=== PATIENT | female | born 1965 | race Caucasian/White ===

== ENCOUNTER 2017-10-05 13:10 | Emergency (ER) | payer BC ==
[2017-10-05] MEDS ORDERED: HYDROmorphone 1 MG/ML Syringe ONE (13:21)
[2017-10-05 13:45] VITALS: BP 135/88
[2017-10-05] MEDS ORDERED: HYDROmorphone 1 MG/ML Syringe IVPUSH ONE ×2 (13:45→14:10)
--- NOTE | 2017-10-05 13:54 | EDM.PDOC ---
ED HPI GENERAL MEDICAL PROBLEM - General Chief Complaint: Upper Extremity Injury/Pain Stated Complaint: Left wrist injury Time Seen by Provider: 10/05/17 13:45 Source of Information: Reports: Patient History Limitations: Reports: No Limitations - History of Present Illness INITIAL COMMENTS - FREE TEXT/NARRATIVE: Patient is a 52-year-old female who presents to the emergency department this afternoon with a complaint of left wrist pain. Patient states that she jumped off vehicle and landed on her feet but tumbled backwards and tried to break her fall with her left arm. Patient complains of left wrist and elbow pain now. Patient denies head injury, back pain, any other injuries, loss of consciousness , or any alcohol or drug use. Onset: Today Onset Date: 10/05/17 Duration: Minutes: Location: Reports: Upper Extremity, Left Quality: Reports: Sharp Severity: Moderate Improves with: Reports: None Worsens with: Reports: Movement Context: Reports: Trauma Associated Symptoms: Reports: No Other Symptoms Left Wrist Pain Score (Numeric/FACES): 10 - Related Data Allergies Allergy/AdvReac Type Severity Reaction Status Date / Time Penicillins Allergy Cannot Verified 10/05/17 13:38 Remember Home Meds: Home Meds Mesalamine [Lialda] 2.4 mg PO DAILY 10/05/17 [History] Past Medical History Gastrointestinal History: Reports: Cholelithiasis, Chronic Diarrhea, Inflammatory Bowel Disease Genitourinary History: Reports: Renal Calculus [employer]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: Fibroids, Musculoskeletal History: Reports: Other (See Below) Other Musculoskeletal History: L 5 slipping forwar - Infectious Disease History Infectious Disease History: Reports: Chicken Pox - Past Surgical History GI Surgical History: Reports: Cholecystectomy, Other (See Below) Social & Family History - Family History HEENT: Reports: Cataract Cardiac: Reports: Hypertension GI: Reports: Inflammatory Bowel Disease Neurological: Reports: CVA - Tobacco Use Smoking Status *Q: Former Smoker Years of Tobacco use: 1 Used Tobacco, but Quit: Yes Month Tobacco Last Used: january Second Hand Smoke Exposure: No - Caffeine Use Caffeine Use: Reports: None - Alcohol Use Days Per Week of Alcohol Use: 0 - Recreational Drug Use Recreational Drug Use: No Review of Systems - Review of Systems Review Of Systems: ROS reveals no pertinent complaints other than HPI. Constitutional: Reports: No Symptoms Eyes: Reports: No Symptoms Ears: Reports: No Symptoms Nose: Reports: No Symptoms Mouth/Throat: Reports: No Symptoms Respiratory: Reports: No Symptoms Cardiovascular: Reports: No Symptoms GI/Abdominal: Reports: No Symptoms Genitourinary: Reports: No Symptoms Musculoskeletal: Reports: Arm Pain (Left wrist and elbow) Skin: Reports: No Symptoms Neurological: Reports: No Symptoms Psychiatric: Reports: No Symptoms ED EXAM, GENERAL - Physical Exam Exam: See Below Exam Limited By: No Limitations General Appearance: Alert, WD/WN, Moderate Distress Throat/Mouth: Normal Inspection, Normal Oropharynx, No Airway Compromise Head: Atraumatic, Normocephalic Neck: Normal Inspection, Supple, Non-Tender, Full Range of Motion Respiratory/Chest: No Respiratory Distress, Lungs Clear Cardiovascular: Regular Rate, Rhythm GI/Abdominal: Normal Bowel Sounds, Soft, Non-Tender Back Exam: Normal Inspection, Full Range of Motion Extremities: Other (left wrist dorsal aspect edema and deformity) Neurological: Alert, Oriented, Normal Cognition Psychiatric: Normal Affect, Normal Mood Skin Exam: Warm, Dry, Intact, Normal Color, No Rash Course - Vital Signs Last Recorded V/S: Last Vital Signs Temp 98.7 F 10/05/17 13:36 Pulse 107 H 10/05/17 13:36 Resp 20 10/05/17 13:36 BP 135/88 10/05/17 13:36 Pulse Ox 100 10/05/17 13:36 - Orders/Labs/Meds Orders: Active Orders 24 hr Category Date Time Status Elbow Min 3V Lt [CR] Stat Exams 10/05/17 13:26 Taken Wrist Comp Min 3V Lt [CR] Stat Exams 10/05/17 13:26 Ordered Meds: Medications Discontinued Medications Generic Name Dose Route Start Last Admin Trade Name Gogo PRN Reason Stop Dose Admin Hydromorphone HCl Confirm 10/05/17 13:21 10/05/17 14:02 Dilaudid Administered 10/05/17 13:22 Not Given Dose 1 mg .ROUTE .STK-MED ONE Hydromorphone HCl 1 mg 10/05/17 13:45 10/05/17 13:25 Dilaudid IVPUSH 10/05/17 13:46 1 mg ONETIME ONE Administration Hydromorphone HCl 0.5 mg 10/05/17 14:10 10/05/17 14:19 Dilaudid IVPUSH 10/05/17 14:11 0.5 mg ONETIME ONE Administration Ketorolac Tromethamine 30 mg 10/05/17 13:57 10/05/17 14:00 Toradol IVPUSH 10/05/17 13:58 30 mg ONETIME ONE Administration Ketorolac Tromethamine Confirm 10/05/17 13:59 10/05/17 14:04 Toradol Administered 10/05/17 14:00 Not Given Dose 30 mg .ROUTE .STK-MED ONE Ondansetron HCl 4 mg 10/05/17 14:11 10/05/17 14:16 Zofran IVPUSH 10/05/17 14:12 4 mg ONETIME ONE Administration - Radiology Interpretation Free Text/Narrative:: Left wrist with acute comminuted and impacted intra-articular distal radial fracture with significant step off and distraction at the articular surface - Re-Assessments/Exams Free Text/Narrative Re-Assessment/Exam: 10/05/17 15:44 Patient afebrile, nontoxic, vital signs stable, pain tolerated. Discussed case with Dr. Wiley, orthopedic surgeon and Dr. Carlisle, hospitalist from [facility] in [place]. Will accept transfer of care Departure - Departure Time of Disposition: 16:02 Disposition: DC/Tfer to Acute Hospital 02 Condition: Fair Clinical Impression: Fracture of radius Qualifiers: Encounter type: initial encounter Radius location: distal Fracture type: closed Fracture morphology: other intra-articular Laterality: left Qualified Code(s): S52.572A - Other intraarticular fracture of lower end of left radius, initial encounter for closed fracture - Discharge Information Referrals: Laura Lopez MD [Primary Care Provider] - Forms: ED Department Discharge - My Orders Last 24 Hours: My Active Orders 10/05/17 13:26 Elbow Min 3V Lt [CR] Stat Wrist Comp Min 3V Lt [CR] Stat - Assessment/Plan Last 24 Hours: My Active Orders 10/05/17 13:26 Elbow Min 3V Lt [CR] Stat Wrist Comp Min 3V Lt [CR] Stat Assessment:: Left wrist fracture Plan: Transferred to [place]
[2017-10-05] MEDS ORDERED: Ketorolac 30 MG/ML SDV IVPUSH ONE (13:57)
[2017-10-05] MEDS ORDERED: Ketorolac 30 MG/ML SDV ONE (13:59)
[2017-10-05] MEDS ORDERED: Ondansetron 4 MG/2 ML SDV IVPUSH ONE (14:11)
== END 2017-10-05 16:20 ==
LOC: KA.ED 13:16
PROC: 2W3DX1Z Immobilization of Left Lower Arm using Splint (ICD-10-PCS; principal; 2017-10-05)
DX: S52.572A Other intraarticular fracture of lower end of left radius, initial encounter for closed fracture (principal); Z88.0 Allergy status to penicillin; Z87.891 Personal history of nicotine dependence; V87.8XXA Person injured in other specified noncollision transport accidents involving motor vehicle (traffic), initial encounter; Y93.39 Activity, other involving climbing, rappelling and jumping off
CPT/HCPCS: 29125; 73080-LT; 73110-LT; 96374; 96375; 96376; 99284; J1170; J1885; J2405

== ENCOUNTER 2017-10-15 11:19 | Observation (INO) | payer BC ==
[2017-10-15] MEDS ORDERED: Sodium Chloride 0.9% 1,000 ML IV ONE (11:31)
[2017-10-15] MEDS ORDERED: Sodium Chloride 0.9% 5 ML Syringe FLUSH PRN ×2 (11:31→13:15)
--- NOTE | 2017-10-15 11:37 | EDM.PDOC ---
ED HPI GENERAL MEDICAL PROBLEM - General Chief Complaint: Abdominal Pain Stated Complaint: Abdominal pain Time Seen by Provider: 10/15/17 11:25 Source of Information: Reports: Patient History Limitations: Reports: No Limitations - History of Present Illness INITIAL COMMENTS - FREE TEXT/NARRATIVE: 52 YO WF presents to ER complaining of crampy abdominal pain x 1 day with nausea /vomiting. Pt reports the last time this happened to her she had a bowel obstruction. Pt reports she has a J pouch and has most recently passed liquid stool and gas this am. Pt reports 1 episode of vomiting this am prompting her ER visit. Pt denies any IBS flares since 1993 when she had her J pouch placed for Ulcerative colitis. Pt denies any fever/chills. Pt states her pain is currently controlled. Pt was given zofran 4mg IV by EMS and is currently comfortable. Onset: Today Location: Reports: Abdomen Quality: Reports: Ache Severity: Mild Improves with: Reports: None Worsens with: Reports: None Associated Symptoms: Reports: No Other Symptoms, Nausea/Vomiting. Denies: Chest Pain, Cough, cough w sputum, Fever/Chills, Shortness of Breath Treatments STUDENT ADVISOR: Reports: IV/IO Abdominal Pain Score (Numeric/FACES): 2 - Related Data Allergies Allergy/AdvReac Type Severity Reaction Status Date / Time Penicillins Allergy Cannot Verified 10/15/17 11:31 Remember Home Meds: Home Meds Mesalamine [Lialda] 2.4 mg PO DAILY 10/05/17 [History] Hydrocodone/Acetaminophen [Hydrocodon-Acetaminophen 5-325] 1 tab PO Q6H PRN 08/20 [History] Past Medical History Gastrointestinal History: Reports: Cholelithiasis, Chronic Diarrhea, Inflammatory Bowel Disease Genitourinary History: Reports: Renal Calculus [employer]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: 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, Musculoskeletal History: Reports: Other (See Below) Other Musculoskeletal History: L 5 slipping forwar - Infectious Disease History Infectious Disease History: Reports: Chicken Pox - Past Surgical History GI Surgical History: Reports: Cholecystectomy, Other (See Below) Social & Family History - Family History HEENT: Reports: Cataract Cardiac: Reports: Hypertension GI: Reports: Inflammatory Bowel Disease Neurological: Reports: CVA - Tobacco Use Smoking Status *Q: Former Smoker Years of Tobacco use: 1 Used Tobacco, but Quit: Yes Month Tobacco Last Used: january Second Hand Smoke Exposure: No - Caffeine Use Caffeine Use: Reports: None - Alcohol Use Days Per Week of Alcohol Use: 0 - Recreational Drug Use Recreational Drug Use: No ED ROS GENERAL - Review of Systems Review Of Systems: See Below Constitutional: Reports: No Symptoms HEENT: Reports: No Symptoms Respiratory: Reports: No Symptoms Cardiovascular: Reports: No Symptoms Endocrine: Reports: No Symptoms GI/Abdominal: Reports: Abdominal Pain, Diarrhea, Nausea, Vomiting. Denies: Black Stool, Bloody Stool, Hematemesis, Hematochezia, Melena : Reports: No Symptoms Musculoskeletal: Reports: No Symptoms Skin: Reports: No Symptoms Neurological: Reports: No Symptoms Psychiatric: Reports: No Symptoms Hematologic/Lymphatic: Reports: No Symptoms Immunologic: Reports: No Symptoms ED EXAM, GI/ABD - Physical Exam Exam: See Below Exam Limited By: No Limitations General Appearance: Alert, WD/WN, No Apparent Distress Head: Atraumatic, Normocephalic Neck: Normal Inspection, Supple, Non-Tender, Full Range of Motion Respiratory/Chest: No Respiratory Distress, Lungs Clear, Normal Breath Sounds, No Accessory Muscle Use, Chest Non-Tender Cardiovascular: Normal Peripheral Pulses, Regular Rate, Rhythm, No Edema, No Gallop, No JVD, No Murmur, No Rub GI/Abdominal Exam: Normal Bowel Sounds, Soft, No Organomegaly, No Distention, No Abnormal Bruit, No Mass, Pelvis Stable, Tender (mild generalized abdominal pain) Back Exam: Normal Inspection, Full Range of Motion, NT Extremities: Normal Inspection, Normal Range of Motion, Non-Tender, Normal Capillary Refill, No Pedal Edema Neurological: Alert, Oriented, CN II-XII Intact, Normal Cognition, Normal Gait, Normal Reflexes, No Motor/Sensory Deficits Psychiatric: Normal Affect, Normal Mood Skin Exam: Warm, Dry, Intact, Normal Color, No Rash Lymphatic: No Adenopathy Course - Vital Signs Last Recorded V/S: Last Vital Signs Temp 36.6 C 10/15/17 11:26 Pulse 81 10/15/17 11:26 Resp 20 10/15/17 11:26 BP 127/70 10/15/17 11:26 Pulse Ox 99 10/15/17 11:26 - Orders/Labs/Meds Orders: Active Orders 24 hr Category Date Time Status Patient Status Manage Transfer [TRANSFER] Routine ADT 10/15/17 13:13 Ordered Patient Status [ADT] Routine ADT 10/15/17 13:15 Ordered Bedrest Bathroom Privileges [RC] ASDIRECTED Care 10/15/17 13:15 Active Oxygen Therapy [RC] PRN Care 10/15/17 13:15 Active Peripheral IV Care [RC] . DIRECTED Care 10/15/17 11:31 Active Peripheral IV Care [RC] . DIRECTED Care 10/15/17 13:17 Active VTE/DVT Education [RC] PER UNIT ROUTINE Care 10/15/17 13:15 Active Vital Signs [RC] Q4H Care 10/15/17 13:15 Active Nothing per Oral Now Diet [DIET] Diet 10/15/17 Dinner Active Abdomen 2V AP Upright Decub [CR] Stat Exams 10/15/17 11:31 Taken BASIC METABOLIC PANEL,BMP [CHEM] AM Lab 10/16/17 05:11 Ordered CBC WITH AUTO DIFF [HEME] AM Lab 10/16/17 05:11 Ordered Morphine Med 10/15/17 13:15 Ordered 2 mg IVPUSH Q2H PRN Ondansetron [Zofran] Med 10/15/17 13:15 Ordered 4 mg IV Q6H PRN Sodium Chloride 0.9% @ 125 MLS/HR (1000ml) Med 10/15/17 13:15 Ordered Sodium Chloride 0.9% [Normal Saline] 1,000 ml IV ASDIRECTED Sodium Chloride 0.9% [Syrex Flush] Med 10/15/17 11:31 Active 5 ml FLUSH Q8HR PRN Sodium Chloride 0.9% [Syrex Flush] Med 10/15/17 13:15 Ordered 5 ml FLUSH Q8HR PRN Peripheral IV Insertion Adult [OM.PC] Routine Oth 10/15/17 11:31 Ordered Peripheral IV Insertion Adult [OM.PC] Routine Oth 10/15/17 13:15 Ordered Resuscitation Status Routine Resus Stat 10/15/17 13:15 Ordered Medication Orders Sodium Chloride (Normal Saline) 1,000 mls @ 125 mls/hr IV ASDIRECTED FERDINAND Morphine Sulfate (Morphine) 2 mg IVPUSH Q2H PRN PRN Reason: Pain (severe 7-10) Ondansetron HCl (Zofran) 4 mg IV Q6H PRN PRN Reason: Nausea/Vomiting Sodium Chloride (Syrex Flush) 5 ml FLUSH Q8HR PRN PRN Reason: Keep Vein Open Sodium Chloride (Syrex Flush) 5 ml FLUSH Q8HR PRN PRN Reason: Keep Vein Open Labs: Laboratory Tests 10/15/17 10/15/17 10/15/17 Range/Units 11:00 11:00 12:02 WBC 15.2 H (5.0-10.0) 10^3/uL RBC 5.15 (3.80-5.50) 10^6/uL Hgb 14.7 (12.0-16.0) g/dL Hct 45.0 (37.0-47.0) % MCV 87.3 (82.0-92.0) fL MCH 28.6 (27.0-31.0) pg MCHC 32.7 (32.0-36.0) g/dL RDW 11.9 (11.5-14.5) % Plt Count 490 H (150-300) 10^3/uL MPV 8.3 (7.4-10.4) fL Neut % (Auto) 70.3 H (50.0-70.0) % Lymph % (Auto) 22.7 (20.0-40.0) % [place] % (Auto) 6.1 (2.0-8.0) % Eos % (Auto) 0.7 L (1.0-3.0) % Baso % (Auto) 0.2 (0.0-1.0) % Neut # (Auto) 10.7 H (2.5-7.0) 10^3/uL Lymph # (Auto) 3.5 (1.0-4.0) 10^3/uL [place] # (Auto) 0.9 H (0.1-0.8) 10^3/uL Eos # (Auto) 0.1 (0.1-0.3) 10^3/uL Baso # (Auto) 0.0 (0.0-0.1) 10^3/uL Sodium 138 (136-145) mmol/L Potassium 2.9 L (3.3-5.3) mmol/L Chloride 98 (98-115) mmol/L Carbon Dioxide 22.4 (21.0-32.0) mmol/L BUN 15 (6-25) mg/dL Creatinine 0.73 (0.51-1.17) mg/dL Est Cr Clr Drug Dosing 72.92 mL/min Estimated GFR (MDRD) > 60 mL/min Glucose 139 H (70-110) mg/dL Calcium 9.9 (8.7-10.3) mg/dL Total Bilirubin 0.6 (0.2-1.0) mg/dL AST 25 (15-37) U/L ALT 32 (12-78) U/L Alkaline Phosphatase 114 (46-116) IU/L Total Protein 8.4 H (6.4-8.2) g/dL Albumin 4.03 (3.00-4.80) g/dL Lipase 242 (73-393) U/L Specimen Type Urinvoid Urine Color Yellow (YELLOW) Urine Appearance Slightly cloudy H (CLEAR) Urine pH 7.0 (5.0-9.0) Ur Specific [place] 1.010 (1.005-1.030) Urine Protein Negative (NEGATIVE) mg/dL Urine Glucose (UA) Negative (NEGATIVE) mg/dL Urine Ketones 15 H (NEGATIVE) mg/dL Urine Occult Blood Trace-lysed H (NEGATIVE) Urine Nitrite Negative (NEGATIVE) Urine Bilirubin Negative (NEGATIVE) Urine Urobilinogen 0.2 (0.2-1.0) E.U./dL Ur Leukocyte Esterase Negative (NEGATIVE) Urine RBC 0-5 /HPF Urine WBC 0-5 /HPF Ur Epithelial Cells Many H /LPF Urine Bacteria Few (NONE TO FEW) /HPF Meds: Medications Generic Name Dose Route Start Last Admin Trade Name Freq PRN Reason Stop Dose Admin Sodium Chloride 1,000 mls @ 125 mls/hr 10/15/17 13:15 Normal Saline IV ASDIRECTED FERDINAND Morphine Sulfate 2 mg 10/15/17 13:15 Morphine IVPUSH Q2H PRN Pain (severe 7-10) Ondansetron HCl 4 mg 10/15/17 13:15 Zofran IV Q6H PRN Nausea/Vomiting Sodium Chloride 5 ml 10/15/17 11:31 Syrex Flush FLUSH Q8HR PRN Keep Vein Open Sodium Chloride 5 ml 10/15/17 13:15 Syrex Flush FLUSH Q8HR PRN Keep Vein Open Discontinued Medications Generic Name Dose Route Start Last Admin Trade Name Freq PRN Reason Stop Dose Admin Sodium Chloride 1,000 mls @ 999 mls/hr 10/15/17 11:31 10/15/17 11:43 Normal Saline IV 10/15/17 12:31 999 mls/hr .BOLUS ONE Administration Potassium Chloride 40 meq 10/15/17 12:07 10/15/17 12:14 Klor-Con M20 PO 10/15/17 12:08 40 meq ONETIME ONE Administration - Radiology Interpretation Free Text/Narrative:: AAS- Partial SBO vs Ileus Departure - Departure Time of Disposition: 13:20 Disposition: Refer to Observation Condition: Fair Clinical Impression: Small bowel obstruction, Hypokalemia - Discharge Information Referrals: PCP,Unobtain [Ordering Only Provider] - Forms: ED Department Discharge - My Orders Last 24 Hours: My Active Orders 10/15/17 11:31 Peripheral IV Care [RC] . DIRECTED Abdomen 2V AP Upright Decub [CR] Stat Sodium Chloride 0.9% [Syrex Flush] 5 ml FLUSH Q8HR PRN Peripheral IV Insertion Adult [OM.PC] Routine 10/15/17 13:13 Patient Status Manage Transfer [TRANSFER] Routine 10/15/17 13:15 Patient Status [ADT] Routine Bedrest Bathroom Privileges [RC] ASDIRECTED Oxygen Therapy [RC] PRN VTE/DVT Education [RC] PER UNIT ROUTINE Vital Signs [RC] Q4H Morphine 2 mg IVPUSH Q2H PRN Ondansetron [Zofran] 4 mg IV Q6H PRN Sodium Chloride 0.9% @ 125 MLS/HR (1000ml) Sodium Chloride 0.9% [Normal Saline] 1,000 ml IV ASDIRECTED Sodium Chloride 0.9% [Syrex Flush] 5 ml FLUSH Q8HR PRN Peripheral IV Insertion Adult [OM.PC] Routine Resuscitation Status Routine 10/15/17 13:17 Peripheral IV Care [RC] . DIRECTED 10/15/17 Dinner Nothing per Oral Now Diet [DIET] 10/16/17 05:11 BASIC METABOLIC PANEL,BMP [CHEM] AM CBC WITH AUTO DIFF [HEME] AM - Assessment/Plan Last 24 Hours: My Active Orders 10/15/17 11:31 Peripheral IV Care [RC] . DIRECTED Abdomen 2V AP Upright Decub [CR] Stat Sodium Chloride 0.9% [Syrex Flush] 5 ml FLUSH Q8HR PRN Peripheral IV Insertion Adult [OM.PC] Routine 10/15/17 13:13 Patient Status Manage Transfer [TRANSFER] Routine 10/15/17 13:15 Patient Status [ADT] Routine Bedrest Bathroom Privileges [RC] ASDIRECTED Oxygen Therapy [RC] PRN VTE/DVT Education [RC] PER UNIT ROUTINE Vital Signs [RC] Q4H Morphine 2 mg IVPUSH Q2H PRN Ondansetron [Zofran] 4 mg IV Q6H PRN Sodium Chloride 0.9% @ 125 MLS/HR (1000ml) Sodium Chloride 0.9% [Normal Saline] 1,000 ml IV ASDIRECTED Sodium Chloride 0.9% [Syrex Flush] 5 ml FLUSH Q8HR PRN Peripheral IV Insertion Adult [OM.PC] Routine Resuscitation Status Routine 10/15/17 13:17 Peripheral IV Care [RC] . DIRECTED 10/15/17 Dinner Nothing per Oral Now Diet [DIET] 10/16/17 05:11 BASIC METABOLIC PANEL,BMP [CHEM] AM CBC WITH AUTO DIFF [HEME] AM Assessment:: 1. Partial SBO vs Ileus 2. hypokalemia Plan: 1. admit to Obs- Dr Solis 2. IVF NS @125CC/HR 3. npo 4. zofran 4mg IV Q6 5. MSO4 2-4mg IV Q2-4 PRN pain 6. repeat labs in am
[2017-10-15 11:48] LABS: CHLORIDE,CL 98 mmol/L (98-115); SODIUM,NA 138 mmol/L (136-145)
[2017-10-15] MEDS ORDERED: Potassium Chloride 20 MEQ Tab.ER PO ONE (12:07)
[2017-10-15] MEDS ORDERED: Ondansetron 4 MG/2 ML SDV IV PRN (13:15)
[2017-10-15] MEDS ORDERED: Morphine 2 MG/ML Syringe IVPUSH PRN (13:15)
[2017-10-15] MEDS: Sodium Chloride 0.9% 1,000 ML IV SCH ×2 (13:38→22:02)
[2017-10-15] MEDS ORDERED: Ondansetron 4 MG/2 ML SDV IVPUSH ONE (14:42)
[2017-10-15] MEDS ORDERED: Ketorolac 30 MG/ML SDV IVPUSH ONE (15:01)
[2017-10-15] MEDS ORDERED: Promethazine 25 MG/ML SDV IM PRN (16:26)
[2017-10-16] MEDS: Sodium Chloride 0.9% 1,000 ML IV SCH ×2 (06:01→14:05)
[2017-10-16 07:40] LABS: CHLORIDE,CL 110 mmol/L (98-115); SODIUM,NA 144 mmol/L (136-145)
--- NOTE | 2017-10-16 08:48 | PCM.PN ---
- General Info Date of Service: 10/16/17 Admission Dx/Problem (Free Text): Partial SBO vs. Ileus - Review of Systems Systems Review Comment:: Vangie is seen on observation rounds today. She was admitted on 10/15/17 from the ER. She had severe abdominal pain with nausea. She has a hx of partial small bowel obstruction and states that she can usually manage it at home on her own with bowel rest but this time she states the pain was so intense. She has a recent left wrist fracture with surgical repair. She has not been taking pain meds. She states that she had oxygen on as she came out of anesthesia and when she went home and took a pain pill she woke up gasping for air and that startled her so she has not taken any additional pain medication. No change in diet. She has a complicated GI history in that she has a hx of ulcerative colitis with a colectomy and an J-pouch. She, unfortunately, developed Crohn's disease in her small bowel subsequent to that. She really manages pretty well at home. She declined any pain medications yesterday but the pain became so intense in the afternoon after she was admitted that she did receive toradol 30 mg IV. She was having nausea and had zofran but that did not help. She had a large emesis around 1600 10/15/17 and felt better after that. She declined NG tube placement. When I see her this morning she states that she is "hungry". She has had no more nausea or vomiting through the night and while her abdomen is "sore" she has had no more of the sharp pain. She would like to try some Jello. She states she was passing liquid stool all through the night and has had gas with that stool as well. She has not urinated as much as she expects she would have be on IVF's but her UA was clear of infection. Nursing has no concerns this morning. - Patient Data Vitals - Most Recent: Last Vital Signs Temp 99.0 F 10/16/17 06:39 Pulse 81 10/16/17 06:39 Resp 16 10/16/17 06:39 BP 96/59 L 10/16/17 06:39 Pulse Ox 97 10/16/17 06:39 Weight - Most Recent: 129 lb 14.4 oz I&O - Last 24 Hours: Intake & Output 10/15/17 10/16/17 10/16/17 22:59 06:59 14:59 Intake Total 991 1000 Output Total 150 200 Balance 841 800 Lab Results Last 24 Hours: Laboratory Results - last 24 hr 10/16/17 10/16/17 Range/Units 07:00 07:00 WBC 10.7 H (5.0-10.0) 10^3/uL RBC 4.11 (3.80-5.50) 10^6/uL Hgb 11.9 L D (12.0-16.0) g/dL Hct 35.8 L (37.0-47.0) % MCV 87.1 (82.0-92.0) fL MCH 28.9 (27.0-31.0) pg MCHC 33.2 (32.0-36.0) g/dL RDW 12.0 (11.5-14.5) % Plt Count 389 H D (150-300) 10^3/uL MPV 7.7 (7.4-10.4) fL Neut % (Auto) 65.1 (50.0-70.0) % Lymph % (Auto) 22.0 (20.0-40.0) % [place] % (Auto) 9.2 H (2.0-8.0) % Eos % (Auto) 2.6 (1.0-3.0) % Baso % (Auto) 1.1 H (0.0-1.0) % Neut # (Auto) 6.9 (2.5-7.0) 10^3/uL Lymph # (Auto) 2.4 (1.0-4.0) 10^3/uL [place] # (Auto) 1.0 H (0.1-0.8) 10^3/uL Eos # (Auto) 0.3 (0.1-0.3) 10^3/uL Baso # (Auto) 0.1 (0.0-0.1) 10^3/uL Sodium 144 (136-145) mmol/L Potassium 4.0 (3.3-5.3) mmol/L Chloride 110 D (98-115) mmol/L Carbon Dioxide 22.2 (21.0-32.0) mmol/L BUN 16 (6-25) mg/dL Creatinine 0.73 (0.51-1.17) mg/dL Est Cr Clr Drug Dosing 72.92 mL/min Estimated GFR (MDRD) > 60 mL/min Glucose 104 (70-110) mg/dL Calcium 8.6 L (8.7-10.3) mg/dL Med Orders - Current: Current Medications Sodium Chloride (Normal Saline) 1,000 mls @ 125 mls/hr IV ASDIRECTED FERDINAND Last Admin: 10/16/17 06:01 Dose: 125 mls/hr Morphine Sulfate (Morphine) 2 mg IVPUSH Q2H PRN PRN Reason: Pain (severe 7-10) Ondansetron HCl (Zofran) 4 mg IV Q6H PRN PRN Reason: Nausea/Vomiting Last Admin: 10/15/17 14:04 Dose: 4 mg Promethazine HCl (Phenergan) 12.5 mg IM Q4H PRN PRN Reason: Nausea/Vomiting Sodium Chloride (Syrex Flush) 5 ml FLUSH Q8HR PRN PRN Reason: Keep Vein Open Discontinued Medications Sodium Chloride (Normal Saline) 1,000 mls @ 999 mls/hr IV .BOLUS ONE Stop: 10/15/17 12:31 Last Admin: 10/15/17 11:43 Dose: 999 mls/hr Ketorolac Tromethamine (Toradol) 30 mg IVPUSH ONETIME ONE Stop: 10/15/17 15:02 Last Admin: 10/15/17 15:06 Dose: 30 mg Ondansetron HCl (Zofran) 4 mg IVPUSH ONETIME ONE Stop: 10/15/17 14:43 Last Admin: 10/15/17 14:48 Dose: 4 mg Potassium Chloride (Klor-Con M20) 40 meq PO ONETIME ONE Stop: 10/15/17 12:08 Last Admin: 10/15/17 12:14 Dose: 40 meq Sodium Chloride (Syrex Flush) 5 ml FLUSH Q8HR PRN PRN Reason: Keep Vein Open - Exam General: Alert, Oriented, Cooperative, No Acute Distress Lungs: Clear to Auscultation, Normal Respiratory Effort Cardiovascular: Regular Rate, Regular Rhythm, No Murmurs GI/Abdominal Exam: Other (Scant bowel sounds, although yesterday there was a lack of bowel sounds.) - Problem List & Annotations (1) Leukocytosis SNOMED Code(s): 541393834 Code(s): D72.829 - ELEVATED WHITE BLOOD CELL COUNT, UNSPECIFIED Status: Acute Current Visit: Yes (2) Hypokalemia SNOMED Code(s): 44644569 Code(s): E87.6 - HYPOKALEMIA Status: Acute Current Visit: Yes (3) Small bowel obstruction SNOMED Code(s): 094895306 Code(s): K56.609 - UNSP INTESTNL OBST, UNSP TO PARTIAL VERSUS COMPLETE OBST Status: Acute Current Visit: Yes - Problem List Review Problem List Initiated/Reviewed/Updated: Yes - My Orders Last 24 Hours: My Active Orders 10/15/17 16:26 Promethazine [Phenergan] 12.5 mg IM Q4H PRN 10/16/17 Lunch Clear Liquid Diet [DIET] 10/17/17 05:11 BMP [BASIC METABOLIC PANEL,BMP] [CHEM] AM CBC WITH AUTO DIFF [HEME] AM - Assessment Assessment:: Partial small bowel obstruction vs. Ileus. Hypokalemia. Leukocytosis. Ulcerative Colitis. Crohn's disease. - Plan Plan:: Partial small bowel obstruction vs. Ileus. Improving. Passing flatus and stool. Will start clear liquids today and can advance diet as tolerated. Hypokalemia. Resolved after potassium replacement yesterday. Likely secondary to GI losses. Leukocytosis. Improved from yesterday. No evidence of infection. Ulcerative Colitis. Has colectomy with J-pouch. Stable. Crohn's disease. Stable. May go home as early as tonight if patient can advance diet without pain or nausea, otherwise likely discharge to home tomorrow.
[2017-10-16 15:21] VITALS: BP 93/58
--- NOTE | 2017-10-16 15:32 | PCM.DCSUM1 ---
Discharge Summary - Hospital Course Free Text/Narrative:: Vangie is being discharged today from an observation stay from 10/15/17 - . She was admitted on 10/15/17 from the ER. She had severe abdominal pain with nausea. She has a hx of partial small bowel obstruction and states that she can usually manage it at home on her own with bowel rest but this time she states the pain was so intense. She has a recent left wrist fracture with surgical repair. She has not been taking pain meds. She states that she had oxygen on as she came out of anesthesia and when she went home and took a pain pill she woke up gasping for air and that startled her so she has not taken any additional pain medication. No change in diet. She has a complicated GI history in that she has a hx of ulcerative colitis with a colectomy and an J- pouch. She, unfortunately, developed Crohn's disease in her small bowel subsequent to that. She really manages pretty well at home. She declined any pain medications yesterday but the pain became so intense in the afternoon after she was admitted that she did receive toradol 30 mg IV. She was having nausea and had zofran but that did not help. She had a large emesis around 1600 10/15/17 and felt better after that. She declined NG tube placement. When I see her this morning she states that she is "hungry". She has had no more nausea or vomiting through the night and while her abdomen is "sore" she has had no more of the sharp pain. She would like to try some Jello. She states she was passing liquid stool all through the night and has had gas with that stool as well. She has not urinated as much as she expects she would have be on IVF's but her UA was clear of infection. As the day progressed she tolerated clear liquids for breakfast, advancing, at her request, to a regular diet for lunch. She has had no recurrence of her abdominal pain and has continued to pass flatus and stool as well as urine. She is requesting to be discharged. She has had these episodes before and will follow a clear liquid diet and some soft foods for the next several days. She has no additional nausea. No new medications at discharge. - Discharge Data Discharge Date: 10/16/17 Discharge Disposition: Home, Self-Care 01 Condition: Good - Discharge Diagnosis/Problem(s) (1) Leukocytosis SNOMED Code(s): 566152753 ICD Code: D72.829 - ELEVATED WHITE BLOOD CELL COUNT, UNSPECIFIED Status: Acute Current Visit: Yes (2) Hypokalemia SNOMED Code(s): 22203625 ICD Code: E87.6 - HYPOKALEMIA Status: Acute Current Visit: Yes (3) Small bowel obstruction SNOMED Code(s): 088050566 ICD Code: K56.609 - UNSP INTESTNL OBST, UNSP TO PARTIAL VERSUS COMPLETE OBST Status: Acute Current Visit: Yes - Patient Instructions Diet: Clear Liquid Diet Diet, Other: Soft foods as tolerated. Activity: As Tolerated Driving: May Drive Today Notify Provider of: Increased Pain, Nausea and/or Vomiting - Discharge Plan Home Medications: Home Meds Mesalamine [Lialda] 2.4 mg PO DAILY 10/05/17 [History] Hydrocodone/Acetaminophen [Hydrocodon-Acetaminophen 5-325] 1 tab PO Q6H PRN 08/20 [History] - Discharge Summary/Plan Comment DC Time >30 min.: No - General Info Date of Service: 10/16/17 Admission Dx/Problem (Free Text: Partial SBO vs. Ileus - Review of Systems Systems Review Comment: 10 point ROS obtained, all pertinent positives listed in the HPI, all other systems are negative. - Patient Data Vitals - Most Recent: Last Vital Signs Temp 98.8 F 10/16/17 15:00 Pulse 90 10/16/17 15:00 Resp 16 10/16/17 15:00 BP 93/58 L 10/16/17 15:00 Pulse Ox 98 10/16/17 15:00 Weight - Most Recent: 129 lb 14.4 oz I&O - Last 24 hours: Intake & Output 10/16/17 10/16/17 10/16/17 06:59 14:59 22:59 Intake Total 1000 2295 Output Total 200 100 Balance 800 2195 Lab Results - Last 24 hrs: Laboratory Results - last 24 hr 10/16/17 10/16/17 Range/Units 07:00 07:00 WBC 10.7 H (5.0-10.0) 10^3/uL RBC 4.11 (3.80-5.50) 10^6/uL Hgb 11.9 L D (12.0-16.0) g/dL Hct 35.8 L (37.0-47.0) % MCV 87.1 (82.0-92.0) fL MCH 28.9 (27.0-31.0) pg MCHC 33.2 (32.0-36.0) g/dL RDW 12.0 (11.5-14.5) % Plt Count 389 H D (150-300) 10^3/uL MPV 7.7 (7.4-10.4) fL Neut % (Auto) 65.1 (50.0-70.0) % Lymph % (Auto) 22.0 (20.0-40.0) % [place] % (Auto) 9.2 H (2.0-8.0) % Eos % (Auto) 2.6 (1.0-3.0) % Baso % (Auto) 1.1 H (0.0-1.0) % Neut # (Auto) 6.9 (2.5-7.0) 10^3/uL Lymph # (Auto) 2.4 (1.0-4.0) 10^3/uL [place] # (Auto) 1.0 H (0.1-0.8) 10^3/uL Eos # (Auto) 0.3 (0.1-0.3) 10^3/uL Baso # (Auto) 0.1 (0.0-0.1) 10^3/uL Sodium 144 (136-145) mmol/L Potassium 4.0 (3.3-5.3) mmol/L Chloride 110 D (98-115) mmol/L Carbon Dioxide 22.2 (21.0-32.0) mmol/L BUN 16 (6-25) mg/dL Creatinine 0.73 (0.51-1.17) mg/dL Est Cr Clr Drug Dosing 72.92 mL/min Estimated GFR (MDRD) > 60 mL/min Glucose 104 (70-110) mg/dL Calcium 8.6 L (8.7-10.3) mg/dL Med Orders - Current: Current Medications Sodium Chloride (Normal Saline) 1,000 mls @ 125 mls/hr IV ASDIRECTED COUNTS INCLUDE 234 BEDS AT THE [facility] Last Admin: 10/16/17 14:05 Dose: 125 mls/hr Morphine Sulfate (Morphine) 2 mg IVPUSH Q2H PRN PRN Reason: Pain (severe 7-10) Ondansetron HCl (Zofran) 4 mg IV Q6H PRN PRN Reason: Nausea/Vomiting Last Admin: 10/15/17 14:04 Dose: 4 mg Promethazine HCl (Phenergan) 12.5 mg IM Q4H PRN PRN Reason: Nausea/Vomiting Sodium Chloride (Syrex Flush) 5 ml FLUSH Q8HR PRN PRN Reason: Keep Vein Open Discontinued Medications Sodium Chloride (Normal Saline) 1,000 mls @ 999 mls/hr IV .BOLUS ONE Stop: 10/15/17 12:31 Last Admin: 10/15/17 11:43 Dose: 999 mls/hr Ketorolac Tromethamine (Toradol) 30 mg IVPUSH ONETIME ONE Stop: 10/15/17 15:02 Last Admin: 10/15/17 15:06 Dose: 30 mg Ondansetron HCl (Zofran) 4 mg IVPUSH ONETIME ONE Stop: 10/15/17 14:43 Last Admin: 10/15/17 14:48 Dose: 4 mg Potassium Chloride (Klor-Con M20) 40 meq PO ONETIME ONE Stop: 10/15/17 12:08 Last Admin: 10/15/17 12:14 Dose: 40 meq Sodium Chloride (Syrex Flush) 5 ml FLUSH Q8HR PRN PRN Reason: Keep Vein Open - Exam General: Reports: Alert, Oriented, Cooperative, No Acute Distress Lungs: Reports: Clear to Auscultation, Normal Respiratory Effort Cardiovascular: Reports: Regular Rate, Regular Rhythm, No Murmurs GI/Abdominal Exam: Soft, Other (Very scant bowel sounds, unchanged from this mornings evaluation.) *Q Meaningful Use (DIS) - VTE *Q VTE Criteria *Q: - Stroke *Q Stroke Criteria *Q: - AMI *Q AMI Criteria *Q:
== END 2017-10-16 16:09 | disposition home or self-care (01) ==
LOC: KA.ED 11:19 → KA.MS 13:13
PROVIDERS: ADMIT Physician Assistant Medical; ATTEND Internal Medicine
DX: D72.829 Elevated white blood cell count, unspecified (principal); E87.6 Hypokalemia; K56.609 Unspecified intestinal obstruction, unspecified as to partial versus complete obstruction; K52.9 Noninfective gastroenteritis and colitis, unspecified; Z79.899 Other long term (current) drug therapy; Z88.0 Allergy status to penicillin; Z90.49 Acquired absence of other specified parts of digestive tract; Z87.891 Personal history of nicotine dependence
CPT/HCPCS: 36415; 74021; 80048; 80053; 81001; 83690; 85025; 96360; 99285; A9270; J1885; J2405; J7030; 96361; 96375; 96376; G0378

== ENCOUNTER 2019-09-10 20:08 | Emergency (ER) | payer BC ==
[2019-09-10 20:33] VITALS: BP 92/55; PULSE 112
[2019-09-10] MEDS ORDERED: Sodium Chloride 0.9% 1,000 ML IV ONE (20:45)
--- NOTE | 2019-09-10 20:51 | EDM.PDOC ---
ED HPI GENERAL MEDICAL PROBLEM - General Chief Complaint: General Stated Complaint: DEHYDRATED Time Seen by Provider: 09/10/19 20:34 Source of Information: Reports: Patient, Significant Other History Limitations: Reports: No Limitations - History of Present Illness INITIAL COMMENTS - FREE TEXT/NARRATIVE: Patient presents with cough and body aches along with mild fever that started about 24 hours ago. She also feels like she is getting dehydrated. She had her colon removed due to ulcerative colitis and later developed Crohn's disease. She denies acute diarrhea but her normal is passing loose stools about 10x a day. No vomiting. She doesn't like drinking water and mostly drinks soda pop. We discussed that water is definitely the best form of hydration for the body and I encouraged her to find a way to drink it regularly with flavors or different water sources, etc. She says she has had to get IV fluids in the past for this but not in the last two years. Treatments [employer]IST: Reports: Acetaminophen, Other (see below) Other Treatments [employer]IST: "ayah seltzer cold Nighttime" Headache Pain Score (Numeric/FACES): 8 - Related Data Allergies Allergy/AdvReac Type Severity Reaction Status Date / Time Penicillins Allergy Cannot Verified 09/10/19 20:37 Remember Home Meds: Home Meds Mesalamine [Lialda] 2.4 mg PO DAILY 10/05/17 [History] Hydrocodone/Acetaminophen [Hydrocodon-Acetaminophen 5-325] 1 tab PO Q6H PRN 08/20 [History] Past Medical History HEENT History: Reports: Impaired Vision Gastrointestinal History: Reports: Cholelithiasis, Chronic Diarrhea, Inflammatory Bowel Disease Other Gastrointestinal History: Crohn's disease. 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 - Infectious Disease History Infectious Disease History: Reports: Chicken Pox - Past Surgical History GI Surgical History: Reports: Cholecystectomy, Other (See Below) Other GI Surgeries/Procedures: Large intestine removed. Internal J-pouch. Musculoskeletal Surgical History: Reports: Other (See Below) Other Musculoskeletal Surgeries/Procedures:: Right broken wrist with plate. Social & Family History - Family History HEENT: Reports: Cataract Cardiac: Reports: Hypertension GI: Reports: Inflammatory Bowel Disease Neurological: Reports: CVA - Caffeine Use Caffeine Use: Reports: Soda ED ROS GENERAL - Review of Systems Review Of Systems: See Below Constitutional: Reports: Fever, Chills (today), Malaise. Denies: Weakness HEENT: Denies: Ear Pain, Throat Pain, Vision Change Respiratory: Reports: Cough. Denies: Shortness of Breath, Sputum Cardiovascular: Denies: Chest Pain, Lightheadedness, Syncope Endocrine: Denies: Fatigue GI/Abdominal: Denies: Abdominal Pain, Constipation, Diarrhea, Vomiting : Reports: Other (she usually urinates whenever she passes stools at least a small amount but not often alone). Denies: Discharge, Dysuria, Flank Pain Musculoskeletal: Denies: Neck Pain, Shoulder Pain, Arm Pain, Back Pain Skin: Denies: Cyanosis, Jaundice, Mottled, Pallor, Diaphoresis Neurological: Denies: Confusion, Dizziness, Headache, Seizure, Syncope, Trouble Speaking, Difficulty Walking Psychiatric: Denies: Agitation, Anxiety, Confusion Hematologic/Lymphatic: Denies: Anemia ED EXAM, GENERAL - Physical Exam Exam: See Below Exam Limited By: No Limitations General Appearance: Alert, WD/WN, No Apparent Distress Eye Exam: Bilateral Eye: EOMI, Normal Inspection, PERRL Ears: Normal External Exam, Normal Canal, Hearing Grossly Normal, Normal TMs Nose: Normal Inspection, Normal Mucosa, No Blood Throat/Mouth: Normal Inspection, Normal Lips, Normal Oropharynx, Normal Voice, No Airway Compromise Head: Atraumatic, Normocephalic Neck: Normal Inspection, Supple, Non-Tender, Full Range of Motion Respiratory/Chest: No Respiratory Distress, Lungs Clear, Normal Breath Sounds, No Accessory Muscle Use Cardiovascular: No Murmur, Tachycardia (regular) GI/Abdominal: Normal Bowel Sounds, Soft, Non-Tender, No Organomegaly, No Distention Back Exam: Normal Inspection, Full Range of Motion. No: CVA Tenderness (L), CVA Tenderness (R) Extremities: Normal Inspection, Normal Range of Motion Neurological: Alert, Oriented, Normal Cognition, No Motor/Sensory Deficits Psychiatric: Normal Affect, Normal Mood Skin Exam: Warm, Dry, Intact, Normal Color, No Rash Course - Vital Signs Last Recorded V/S: Last Vital Signs Temp 100.2 F 09/10/19 20:14 Pulse 112 H 09/10/19 20:14 Resp 16 09/10/19 20:14 BP 92/55 L 09/10/19 20:14 Pulse Ox 95 09/10/19 20:14 - Orders/Labs/Meds Orders: Active Orders 24 hr Category Date Time Status Sodium Chloride 0.9% @ 999 MLS/HR (1000ml) Med 09/10/19 20:45 Ordered Sodium Chloride 0.9% [Normal Saline] 1,000 ml IV .BOLUS Medication Orders Sodium Chloride (Normal Saline) 1,000 mls @ 999 mls/hr IV .BOLUS ONE Stop: 09/10/19 21:45 Last Admin: 09/10/19 20:59 Dose: 999 mls/hr Labs: Laboratory Tests 09/10/19 09/10/19 Range/Units 20:25 20:25 WBC 7.85 (5.00-10.00) 10^3/uL RBC 4.48 (3.80-5.50) 10^6/uL Hgb 13.0 (12.0-16.0) g/dL Hct 39.0 (37.0-47.0) % MCV 87.1 (82.0-92.0) fL MCH 29.0 (27.0-31.0) pg MCHC 33.3 (32.0-36.0) g/dL RDW 12.8 (11.5-14.5) % Plt Count 316 (150-400) 10^3/uL MPV 8.9 (7.4-10.4) fL Immature Gran % (Auto) 0.1 (0.0-5.0) % Neut % (Auto) 83.7 H (50.0-70.0) % Lymph % (Auto) 8.2 L (20.0-40.0) % [place] % (Auto) 7.4 (2.0-8.0) % Eos % (Auto) 0.0 L (1.0-3.0) % Baso % (Auto) 0.6 (0.0-1.0) % Immature Gran # (Auto) 0.01 (0.00-0.50) 10^3/uL Neut # (Auto) 6.57 (2.50-7.00) 10^3/uL Lymph # (Auto) 0.64 L (1.00-4.00) 10^3/uL [place] # (Auto) 0.58 (0.10-0.80) 10^3/uL Eos # (Auto) 0.00 L (0.10-0.30) 10^3/uL Baso # (Auto) 0.05 (0.00-0.10) 10^3/uL Sodium 137 (136-145) mmol/L Potassium 3.7 (3.3-5.3) mmol/L Chloride 100 (98-115) mmol/L Carbon Dioxide 26.9 (21.0-32.0) mmol/L Anion Gap 13.8 (5-15) mmol/L BUN 9 (6-25) mg/dL Creatinine 0.73 (0.51-1.17) mg/dL Est Cr Clr Drug Dosing 71.30 mL/min Estimated GFR (MDRD) > 60 mL/min Glucose 115 H (75 - 99) mg/dL Calcium 8.7 (8.7-10.3) mg/dL Total Bilirubin 0.3 (0.2-1.0) mg/dL AST 21 (15-37) U/L ALT 20 (12-78) U/L Alkaline Phosphatase 86 (46-116) IU/L Total Protein 7.7 (6.4-8.2) g/dL Albumin 3.40 (3.00-4.80) g/dL Meds: Medications Generic Name Dose Route Start Last Admin Trade Name Freq PRN Reason Stop Dose Admin Sodium Chloride 1,000 mls @ 999 mls/hr 09/10/19 20:45 09/10/19 20:59 Normal Saline IV 09/10/19 21:45 999 mls/hr .BOLUS ONE Administration - Re-Assessments/Exams Free Text/Narrative Re-Assessment/Exam: 09/10/19 20:57 Influenza A positive. Discussed treatment with Tamiflu and patient is deciding if she wants it or not. 09/10/19 21:25 She decided she doesn't want Tamiflu. IV fluids are running. Discussed findings, expectations and treatment options. Patient stable. Departure - Departure Time of Disposition: 21:32 Disposition: Home, Self-Care 01 Condition: Good Clinical Impression: Influenza A - Discharge Information Instructions: Influenza, Adult, [id number] Referrals: Laura Lopez MD [Primary Care Provider] - Forms: ED Department Discharge Additional Instructions: 1. Drink 8 cups of water daily. 2. Avoid unnecessary exposure to others while you have influenza. 3. You can use Tylenol or Ibuprofen for fever as needed. Ibuprofen will also help aches. 4. Follow up with your PCP as needed. Sepsis Event Note - Evaluation Sepsis Screening Result: Possible Sepsis Risk - Focused Exam Vital Signs: Vital Signs Temp Pulse Resp BP Pulse Ox 09/10/19 20:14 100.2 F 112 H 16 92/55 L 95 Date Exam was Performed: 09/10/19 Time Exam was Performed: 21:31 - My Orders Last 24 Hours: My Active Orders 09/10/19 20:45 Sodium Chloride 0.9% @ 999 MLS/HR (1000ml) Sodium Chloride 0.9% [Normal Saline] 1,000 ml IV .BOLUS - Assessment/Plan Last 24 Hours: My Active Orders 09/10/19 20:45 Sodium Chloride 0.9% @ 999 MLS/HR (1000ml) Sodium Chloride 0.9% [Normal Saline] 1,000 ml IV .BOLUS
[2019-09-10 21:00] LABS: ANION GAP 13.8 mmol/L (5-15); CHLORIDE,CL 100 mmol/L (98-115); SODIUM,NA 137 mmol/L (136-145)
== END 2019-09-10 22:11 | disposition home or self-care (01) ==
LOC: KA.ED 20:08
DX: J10.1 Influenza due to other identified influenza virus with other respiratory manifestations (principal); Z88.0 Allergy status to penicillin
CPT/HCPCS: 36415; 80053; 85025; 87804; 96360; 99283-25; J7030

== ENCOUNTER 2020-08-07 10:54 | Emergency (ER) | payer BC ==
[2020-08-07 11:06] VITALS: BP 140/88; PULSE 94
--- NOTE | 2020-08-07 11:18 | EDM.PDOC ---
ED HPI GENERAL MEDICAL PROBLEM - General Chief Complaint: Laceration Stated Complaint: RIGHT FINGER LACERATION Time Seen by Provider: 08/07/20 11:05 Source of Information: Reports: Patient History Limitations: Reports: No Limitations - History of Present Illness INITIAL COMMENTS - FREE TEXT/NARRATIVE: 55 YO WF PRESENTS TO ER COMPLAINING OF LACERATION TO RIGHT RING FINGER AFTER CUTTING HER FINGER ON A BROKEN GLASS. PT REPORTS NO FUNCTIONAL DEFICIT AND BLEEDING WAS CONTROLLED UPON EVALUATION IN ER. PT DENIES ANY NUMBNESS OR WEAKNESS AND HAS FULL ROM TO ALL FINGERS AND HAND. Onset: Today Location: Reports: Upper Extremity, Right Quality: Reports: Dull Severity: Mild Improves with: Reports: None Worsens with: Reports: None Associated Symptoms: Reports: No Other Symptoms - Related Data Allergies Allergy/AdvReac Type Severity Reaction Status Date / Time Penicillins Allergy Cannot Verified 08/07/20 11:02 Remember Home Meds: Home Meds . [No Known Home Meds] 08/07/20 [History] Past Medical History HEENT History: Reports: Impaired Vision Other HEENT History: wears glasses Gastrointestinal History: Reports: Cholelithiasis, Chronic Diarrhea, Inflammatory Bowel Disease Other Gastrointestinal History: Crohn's disease. 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 - Infectious Disease History Infectious Disease History: Reports: Chicken Pox Other Infectious Disease History: Influenza A 09-10-19 - Past Surgical History HEENT Surgical History: Reports: Tonsillectomy GI Surgical History: Reports: Cholecystectomy, Other (See Below) Other GI Surgeries/Procedures: Large intestine removed. Internal J-pouch. Female Surgical History: Reports: Section, Hysterectomy Other Female Surgeries/Procedures: hysterectomy 2011 (just uterus) Musculoskeletal Surgical History: Reports: Other (See Below) Other Musculoskeletal Surgeries/Procedures:: Right broken wrist with plate. Social & Family History - Family History HEENT: Reports: Cataract Cardiac: Reports: Hypertension GI: Reports: Inflammatory Bowel Disease Neurological: Reports: CVA - Tobacco Use Tobacco Use Status *Q: Never Tobacco User - Caffeine Use Caffeine Use: Reports: Soda Other Caffeine Use: Mountain Dew - Recreational Drug Use Recreational Drug Use: No ED ROS GENERAL - Review of Systems Review Of Systems: See Below Constitutional: Reports: No Symptoms HEENT: Reports: No Symptoms Respiratory: Reports: No Symptoms Cardiovascular: Reports: No Symptoms Endocrine: Reports: No Symptoms GI/Abdominal: Reports: No Symptoms : Reports: No Symptoms Musculoskeletal: Reports: No Symptoms Skin: Reports: Wound (3CM LACERATION TO VOLAR ASPECT OF RIGHT RING FINGER) Neurological: Reports: No Symptoms Psychiatric: Reports: No Symptoms Hematologic/Lymphatic: Reports: No Symptoms Immunologic: Reports: No Symptoms ED EXAM, SKIN/RASH Exam: See Below Exam Limited By: No Limitations General Appearance: Alert, WD/WN, No Apparent Distress Head: Atraumatic, Normocephalic Neck: Normal Inspection, Supple, Non-Tender, Full Range of Motion Respiratory/Chest: No Respiratory Distress, Lungs Clear, Normal Breath Sounds, No Accessory Muscle Use, Chest Non-Tender Cardiovascular: Normal Peripheral Pulses, Regular Rate, Rhythm, No Edema, No Gallop, No JVD, No Murmur, No Rub GI/Abdominal: Normal Bowel Sounds, Soft, Non-Tender, No Organomegaly, No Distention, No Abnormal Bruit, No Mass Back Exam: Normal Inspection, Full Range of Motion, NT Neurological: Alert, Oriented, CN II-XII Intact, Normal Cognition, Normal Gait, Normal Reflexes, No Motor/Sensory Deficits Psychiatric: Normal Affect, Normal Mood Skin: Wound/Incision (3CM LACERATION TO VOLAR ASPECT OF RIGHT RING FINGER) ED SKIN PROCEDURES - Laceration/Wound Repair Right Digit - 4th (Ring) Appearance: Subcutaneous, Linear Distal NVT: Neuro & Vascular Intact Anesthetic Type: Local Local Anesthesia - Lidocaine (Xylocaine): 1% Plain Local Anesthetic Volume: 4cc Skin Prep: Chlorhexidine (Hibiciens), Saline Exploration/Debridement/Repair: Wound Explored Closed with: Sutures Lac/Wound length In cm: 3 Suture Size: 4-0 Suture Type: Nylon, Simple Sterile Dressing Applied: Provider Tetanus Status Addressed: Yes Complications: No Course - Vital Signs Last Recorded V/S: Last Vital Signs Temp 97.0 F 08/07/20 11:03 Pulse 94 08/07/20 11:03 Resp 18 08/07/20 11:03 BP 140/88 08/07/20 11:03 Pulse Ox 97 08/07/20 11:03 - Orders/Labs/Meds Orders: Active Orders 24 hr Category Date Time Status Vaccines to be Administered [RC] PER UNIT ROUTINE Care 08/07/20 11:23 Active Meds: Medications Discontinued Medications Generic Name Dose Route Start Last Admin Trade Name Gogo PRN Reason Stop Dose Admin Diphtheria/Tetanus/Acell Pertussis 0.5 ml 08/07/20 11:23 Adacel IM 08/07/20 11:24 .ONCE ONE Lidocaine HCl 5 ml 08/07/20 11:23 Xylocaine-Mpf 1% INJECT 08/07/20 11:24 ONETIME ONE Departure - Departure Time of Disposition: 11:41 Disposition: Home, Self-Care 01 Condition: Good Clinical Impression: Laceration of hand Qualifiers: Encounter type: initial encounter Foreign body presence: without foreign body Laterality: right Qualified Code(s): S61.411A - Laceration without foreign body of right hand, initial encounter - Discharge Information Instructions: Sutures, Sunshine, or Adhesive Wound Closure, [id number] Referrals: Laura Lopez MD [Primary Care Provider] - Forms: ED Department Discharge Additional Instructions: 1. DISCHARGE HOME 2. WOUND INSTRUCTIONS GIVEN 3. SUTURE REMOVAL IN 7-10 DAYS 4. RETURN TO ER FOR WORSENING SYMPTOMS OR SIGNS OF INFECTION Sepsis Event Note (ED) - Evaluation Sepsis Screening Result: No Definite Risk - Focused Exam Vital Signs: Vital Signs Temp Pulse Resp BP Pulse Ox 08/07/20 11:03 97.0 F 94 18 140/88 97 - My Orders Last 24 Hours: My Active Orders 08/07/20 11:23 Vaccines to be Administered [RC] PER UNIT ROUTINE - Assessment/Plan Last 24 Hours: My Active Orders 08/07/20 11:23 Vaccines to be Administered [RC] PER UNIT ROUTINE Assessment:: 1. 3CM LACERATION TO VOLAR ASPECT OF RIGHT RING FINGER Plan: 1. DISCHARGE HOME 2. WOUND INSTRUCTIONS GIVEN 3. SUTURE REMOVAL IN 7-10 DAYS 4. RETURN TO ER FOR WORSENING SYMPTOMS OR SIGNS OF INFECTION
[2020-08-07] MEDS ORDERED: Diphtheria,Pertussis(Acell),Tetanus Vaccine 0.5 ML SDV IM ONE (11:23)
== END 2020-08-07 11:45 | disposition home or self-care (01) ==
LOC: KA.ED 10:54
DX: S61.214A Laceration without foreign body of right ring finger without damage to nail, initial encounter (principal); Z88.0 Allergy status to penicillin; Z23 Encounter for immunization; W25.XXXA Contact with sharp glass, initial encounter
CPT/HCPCS: 12002; 90715; 99283; J2001

== ENCOUNTER 2020-10-12 08:44 | Emergency (ER) | payer BC ==
[2020-10-12] MEDS ORDERED: Ondansetron 4 MG/2 ML SDV IVPUSH ONE (08:56)
[2020-10-12] MEDS ORDERED: Sodium Chloride 0.9% 1,000 ML IV ONE (08:56)
[2020-10-12] MEDS ORDERED: Sodium Chloride 0.9% 10 ML Syringe FLUSH PRN (08:56)
--- NOTE | 2020-10-12 09:18 | EDM.PDOC ---
ED HPI GENERAL MEDICAL PROBLEM - General Chief Complaint: General Stated Complaint: FEELING DEHYDRATED Time Seen by Provider: 10/12/20 08:50 Source of Information: Reports: Patient History Limitations: Reports: No Limitations - History of Present Illness INITIAL COMMENTS - FREE TEXT/NARRATIVE: 55 YO WF PRESENTS TO ER COMPLAINING OF DIFFUSE DIARRHEA AND NAUSEA X 2 DAY. PT REPORTS DIARRHEA HAS IMPROVED AND HAS ONLY HAD 1 LOOSE STOOL OVER THE LAST 10 HOURS. PT REPORTS ASSOCIATED NAUSEA WITHOUT VOMITING. PT HAS BEEN ABLE TO TOLERATE PO FLUIDS AND HAS EATEN APPLE SAUCE WITHOUT VOMITING BUT STATES SHE FEELS DEHYDRATED AND CAME TO ER FOR IVF HYDRATION. PT DENIES FEVER/CHILLS, NO BLOOD STOOLS, MILD GENERALIZED ABDOMINAL SORENESS WHICH SHE ATTRIBUTES TO THE DIARRHEA. PT WITH HISTORY OF CROHNS DZ AND STATES SHE DOES NOT BELIEVE THIS IS HER CROHNS BUT STATES SHE DOES GET EPISODES OF DIARRHEA WELL DEHYDRATION IN THE PAST. PT CURRENTLY NOT TAKING ANYTHING FOR HER COLITIS. Onset Date: 10/10/20 Duration: Day(s): (2) Location: Reports: Abdomen, Generalized Quality: Reports: Ache Severity: Mild Improves with: Reports: None Worsens with: Reports: None Associated Symptoms: Reports: No Other Symptoms, Nausea/Vomiting, Weakness. Denies: Chest Pain, Fever/Chills, Rash, Shortness of Breath, Syncope - Related Data Allergies Allergy/AdvReac Type Severity Reaction Status Date / Time Penicillins Allergy Cannot Verified 10/12/20 08:57 Remember Home Meds: Home Meds . [No Known Home Meds] 08/07/20 [History] Past Medical History HEENT History: Reports: Impaired Vision Other HEENT History: wears glasses Gastrointestinal History: Reports: Cholelithiasis, Chronic Diarrhea, Inflammatory Bowel Disease Other Gastrointestinal History: Crohn's disease. 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 - Infectious Disease History Infectious Disease History: Reports: Chicken Pox Other Infectious Disease History: Influenza A 09-10-19 - Past Surgical History HEENT Surgical History: Reports: Tonsillectomy GI Surgical History: Reports: Cholecystectomy, Other (See Below) Other GI Surgeries/Procedures: Large intestine removed. Internal J-pouch. Female Surgical History: Reports: Section, Hysterectomy Other Female Surgeries/Procedures: hysterectomy 2012 (just uterus) Musculoskeletal Surgical History: Reports: Other (See Below) Other Musculoskeletal Surgeries/Procedures:: Right broken wrist with plate. Social & Family History - Family History HEENT: Reports: Cataract Cardiac: Reports: Hypertension GI: Reports: Inflammatory Bowel Disease Neurological: Reports: CVA - Caffeine Use Caffeine Use: Reports: Soda Other Caffeine Use: Mountain Dew ED ROS GENERAL - Review of Systems Review Of Systems: See Below Constitutional: Reports: No Symptoms, Decreased Appetite HEENT: Reports: No Symptoms Respiratory: Reports: No Symptoms Cardiovascular: Reports: No Symptoms Endocrine: Reports: No Symptoms GI/Abdominal: Reports: Anorexia, Diarrhea, Nausea. Denies: Black Stool, Bloody Stool, Hematemesis, Hematochezia, Melena, Mucous in Stool, Vomiting : Reports: No Symptoms Musculoskeletal: Reports: No Symptoms Skin: Reports: No Symptoms Neurological: Reports: No Symptoms Psychiatric: Reports: No Symptoms Hematologic/Lymphatic: Reports: No Symptoms Immunologic: Reports: No Symptoms ED EXAM, GENERAL - Physical Exam Exam: See Below Exam Limited By: No Limitations General Appearance: Alert, WD/WN, No Apparent Distress Neck: Normal Inspection, Supple, Non-Tender, Full Range of Motion Respiratory/Chest: No Respiratory Distress, Lungs Clear, Normal Breath Sounds, No Accessory Muscle Use, Chest Non-Tender Cardiovascular: Normal Peripheral Pulses, Regular Rate, Rhythm, No Edema, No Gallop, No JVD, No Murmur, No Rub GI/Abdominal: Normal Bowel Sounds, Soft, No Organomegaly, No Distention, No Abnormal Bruit, No Mass, Pelvis Stable, Tender (GENERALIZED CRAMPING ) Back Exam: Normal Inspection, Full Range of Motion, NT Extremities: Normal Inspection, Normal Range of Motion, Non-Tender, Normal Capillary Refill, No Pedal Edema Neurological: Alert, Oriented, CN II-XII Intact, Normal Cognition, Normal Gait, Normal Reflexes, No Motor/Sensory Deficits Psychiatric: Normal Affect, Normal Mood Skin Exam: Warm, Dry, Intact, Normal Color, No Rash Lymphatic: No Adenopathy Course - Vital Signs Last Recorded V/S: Last Vital Signs Temp 96.7 F L 10/12/20 09:06 Pulse 90 10/12/20 09:06 Resp 16 10/12/20 09:06 BP 119/95 H 10/12/20 09:06 Pulse Ox 97 10/12/20 09:06 - Orders/Labs/Meds Orders: Active Orders 24 hr Category Date Time Status Peripheral IV Care [RC] . DIRECTED Care 10/12/20 08:56 Active UA W/MICROSCOPIC [URIN] Stat Lab 10/12/20 09:36 Results Sodium Chloride 0.9% [Normal Saline] 1,000 ml Med 10/12/20 08:56 Active IV .BOLUS Sodium Chloride 0.9% [Saline Flush] Med 10/12/20 08:56 Active 10 ml FLUSH Q8HR PRN Peripheral IV Insertion Adult [OM.PC] Routine Oth 10/12/20 08:56 Ordered Medication Orders Sodium Chloride (Normal Saline) 1,000 mls @ 999 mls/hr IV .BOLUS ONE Stop: 10/12/20 09:56 Last Admin: 10/12/20 08:59 Dose: 999 mls/hr Documented by: LENCHO Sodium Chloride (Saline Flush) 10 ml FLUSH Q8HR PRN PRN Reason: keep vein open Last Admin: 10/12/20 09:00 Dose: 10 ml Documented by: LENCHO Labs: Laboratory Tests 10/12/20 10/12/20 10/12/20 Range/Units 08:55 08:56 09:36 WBC 10.52 H (5.00-10.00) 10^3/uL RBC 6.14 H (3.80-5.50) 10^6/uL Hgb 17.2 H D (12.0-16.0) g/dL Hct 50.5 H (37.0-47.0) % MCV 82.2 (82.0-92.0) fL MCH 28.0 (27.0-31.0) pg MCHC 34.1 (32.0-36.0) g/dL RDW 12.4 (11.5-14.5) % Plt Count 366 (150-400) 10^3/uL MPV 9.2 (7.4-10.4) fL Immature Gran % (Auto) 0.2 (0.0-5.0) % Neut % (Auto) 73.4 H (50.0-70.0) % Lymph % (Auto) 18.1 L (20.0-40.0) % Sharkey % (Auto) 7.6 (2.0-8.0) % Eos % (Auto) 0.6 L (1.0-3.0) % Baso % (Auto) 0.1 (0.0-1.0) % Neut # (Auto) 7.73 H (2.50-7.00) 10^3/uL Lymph # (Auto) 1.90 (1.00-4.00) 10^3/uL Sharkey # (Auto) 0.80 (0.10-0.80) 10^3/uL Eos # (Auto) 0.06 L (0.10-0.30) 10^3/uL Baso # (Auto) 0.01 (0.00-0.10) 10^3/uL Immature Gran # (Auto) 0.02 (0.00-0.50) 10^3/uL Sodium 130 L (136-145) mmol/L Potassium 3.4 L (3.5-5.1) mmol/L Chloride 89 L* (98-107) mmol/L Carbon Dioxide 26.4 (21.0-32.0) mmol/L Anion Gap 18.0 H (5-15) mmol/L BUN 21 H (7-18) mg/dL Creatinine 0.87 (0.51-1.17) mg/dL Est Cr Clr Drug Dosing 59.15 mL/min Estimated GFR (MDRD) > 60 mL/min Glucose 151 H (70-140) mg/dL Calcium 10.2 (8.7-10.3) mg/dL Total Bilirubin 0.7 (0.2-1.0) mg/dL AST 30 (15-37) U/L ALT 32 (14-63) U/L Alkaline Phosphatase 135 H (46-116) U/L Total Protein 9.9 H (6.4-8.2) g/dL Albumin 4.22 (3.40-5.00) g/dL Lipase 159 (73-393) U/L Urine Color Yellow (YELLOW) Urine Appearance Clear (CLEAR) Urine pH 6.0 (5.0-9.0) Ur Specific [place] 1.010 (1.005-1.030) Urine Protein Trace H (NEGATIVE) mg/dL Urine Glucose (UA) Negative (NEGATIVE) mg/dL Urine Ketones Negative (NEGATIVE) mg/dL Urine Occult Blood Small H (NEGATIVE) Urine Nitrite Negative (NEGATIVE) Urine Bilirubin Negative (NEGATIVE) Urine Urobilinogen 0.2 (0.2-1.0) E.U./dL Ur Leukocyte Esterase Negative (NEGATIVE) Meds: Medications Generic Name Dose Route Start Last Admin Trade Name Gogo PRN Reason Stop Dose Admin Sodium Chloride 1,000 mls @ 999 mls/hr 10/12/20 08:56 10/12/20 08:59 Normal Saline IV 10/12/20 09:56 999 mls/hr .BOLUS ONE Administration Sodium Chloride 10 ml 10/12/20 08:56 10/12/20 09:00 Saline Flush FLUSH 10 ml Q8HR PRN Administration keep vein open Discontinued Medications Generic Name Dose Route Start Last Admin Trade Name Freq PRN Reason Stop Dose Admin Ondansetron HCl 4 mg 10/12/20 08:56 10/12/20 08:59 Zofran IVPUSH 10/12/20 08:57 4 mg ONETIME ONE Administration - Radiology Interpretation Free Text/Narrative:: PT REPORTS FEELING BETTER AFTER ZOFRAN/IVF. PT TOLERATING PO CHALLENGE IN ER. WILL DISCHARGE. ENCOURAGED PT TO DRINK ELECTROLYTE REPLACEMENT AND FOLLOW UP IN CLINIC FOR RECHECK THIS WEEK Departure - Departure Time of Disposition: 09:54 Disposition: Home, Self-Care 01 Condition: Good Clinical Impression: Hyperglycemia, Hyponatremia, Dehydration, Diarrhea - Discharge Information Instructions: Dehydration, Adult, [id number], Diarrhea, Adult Referrals: Laura Lopez MD [Primary Care Provider] - Forms: ED Department Discharge Additional Instructions: 1. DISCHARGE HOME 2. CLEAR LIQUID DIET AND PROGRESS TOLERATED- CONTINUE TO DRINK ELECTROLYTE REPLACEMENT 3. IF DIARRHEA CONTINUES OR ABDOMINAL SORENESS WORSENS, FOLLOW UP WITH PCP FOR FURTHER EVALUATION AND TREATMENT 4. RETURN TO ER FOR WORSENING SYMPTOMS Sepsis Event Note (ED) - Focused Exam Vital Signs: Vital Signs Temp Pulse Resp BP Pulse Ox 10/12/20 09:06 96.7 F L 90 16 119/95 H 97 - My Orders Last 24 Hours: My Active Orders 10/12/20 08:56 Peripheral IV Care [RC] . DIRECTED Sodium Chloride 0.9% [Normal Saline] 1,000 ml IV .BOLUS Sodium Chloride 0.9% [Saline Flush] 10 ml FLUSH Q8HR PRN Peripheral IV Insertion Adult [OM.PC] Routine 10/12/20 09:36 UA W/MICROSCOPIC [URIN] Stat - Assessment/Plan Last 24 Hours: My Active Orders 10/12/20 08:56 Peripheral IV Care [RC] . DIRECTED Sodium Chloride 0.9% [Normal Saline] 1,000 ml IV .BOLUS Sodium Chloride 0.9% [Saline Flush] 10 ml FLUSH Q8HR PRN Peripheral IV Insertion Adult [OM.PC] Routine 10/12/20 09:36 UA W/MICROSCOPIC [URIN] Stat Assessment:: 1. DEHYDRATION-IMPROVED AFTER IVF 2. DIARRHEA-RESOLVED 3. NAUSEA-IMPROVED AFTER ZOFRAN Plan: 1. DISCHARGE HOME 2. CLEAR LIQUID DIET AND PROGRESS TOLERATED- CONTINUE TO DRINK ELECTROLYTE REPLACEMENT 3. IF DIARRHEA CONTINUES OR ABDOMINAL SORENESS WORSENS, FOLLOW UP WITH PCP FOR FURTHER EVALUATION AND TREATMENT 4. RETURN TO ER FOR WORSENING SYMPTOMS
[2020-10-12 09:30] LABS: SODIUM,NA 130 mmol/L (136-145)
[2020-10-12 09:39] LABS: CHLORIDE,CL 89 mmol/L (98-107)
[2020-10-12 09:57] VITALS: BP 128/83; PULSE 80
== END 2020-10-12 10:17 | disposition home or self-care (01) ==
LOC: KA.ED 08:44
DX: E87.1 Hypo-osmolality and hyponatremia (principal); E86.0 Dehydration; R19.7 Diarrhea, unspecified; R73.9 Hyperglycemia, unspecified; Z88.0 Allergy status to penicillin
CPT/HCPCS: 36415; 80053; 81001; 83690; 85025; 96374; 99284; 99284-25; J2405; J7030

== ENCOUNTER 2024-05-18 01:31 | Emergency (ER) | payer BC ==
[2024-05-18] MEDS ORDERED: Sodium Chloride 0.9% 10 ML Syringe FLUSH PRN (01:33)
[2024-05-18] MEDS: Sodium Chloride 0.9% 1,000 ML IV ONE (01:42)
[2024-05-18] MEDS: HYDROmorphone 1 MG/ML Syringe IVPUSH ONE ×2 (01:46→02:59)
[2024-05-18] MEDS: Ondansetron 4 MG/2 ML SDV IVPUSH ONE ×2 (01:47→02:59)
[2024-05-18 01:51] LABS: BASOPHILS ABSOLUTE AUTO 0.01 10^3/uL (0.00-0.10); BASOPHILS PERCENT AUTO 0.1 % (0.0-1.0); HEMATOCRIT 39.3 % (37.0-47.0); HEMOGLOBIN 13.5 g/dL (12.0-16.0); IMMATURE GRAN ABSOLUTE AUTO 0.03 10^3/uL (0.00-0.50); IMMATURE GRAN PERCENT AUTO 0.2 % (0.0-5.0); LYMPHOCYTES ABSOLUTE AUTO 1.51 10^3/uL (1.00-4.00); LYMPHOCYTES PERCENT AUTO 7.9 % (20.0-40.0); MEAN CORPUSCULAR HEMOGLOBIN 28.4 pg (27.0-31.0); MEAN CORPUSCULAR HGB CONC 34.4 g/dL (32.0-36.0); MEAN CORPUSCULAR VOLUME 82.6 fL (82.0-92.0); MEAN PLATELET VOLUME 9.3 fL (7.4-10.4); MONOCYTES ABSOLUTE AUTO 0.61 10^3/uL (0.10-0.80); MONOCYTES PERCENT AUTO 3.2 % (2.0-8.0); NEUTROPHILS ABSOLUTE AUTO 17.03 10^3/uL (2.50-7.00); NEUTROPHILS PERCENT AUTO 88.6 % (50.0-70.0); PLATELET COUNT,PLT 407 10^3/uL (150-400); RED BLOOD CELL COUNT 4.76 10^6/uL (3.80-5.50); RED CELL DISTRIBUTION WIDTH 11.9 % (11.5-14.5); WHITE BLOOD CELL COUNT,WBC 19.19 10^3/uL (5.00-10.00)
[2024-05-18 02:09] LABS: ALBUMIN 4.03 g/dL (3.40-5.00); ANION GAP 19.6 mmol/L (5-15); BILIRUBIN TOTAL 0.8 mg/dL (0.2-1.0); CALCIUM 9.9 mg/dL (8.7-10.3); CARBON DIOXIDE,CO2 25.1 mmol/L (21.0-32.0); CREATININE 0.73 mg/dL (0.51-1.17); EST CRCL DRUG DOSING (CG) 68.06 mL/min; POTASSIUM,K 3.7 mmol/L (3.5-5.1); PROTEIN TOTAL,TP 8.8 g/dL (6.4-8.2)
[2024-05-18 02:24] LABS: APPEARANCE,URINE CLEAR (CLEAR); BILIRUBIN,URINE NEGATIVE (NEGATIVE); COLOR,URINE YELLOW (YELLOW); GLUCOSE,URINE NEGATIVE (NEGATIVE); KETONES,URINE 80 mg/dL (NEGATIVE); LEUKOCYTE ESTERASE,URINE TRACE (NEGATIVE); NITRITE,URINE NEGATIVE (NEGATIVE); OCCULT BLOOD,URINE SMALL (NEGATIVE); PH,URINE 8.5 (5.0-9.0); PROTEIN,URINE 30 mg/dL (NEGATIVE); UROBILINOGEN,URINE 0.2 E.U./dL (0.2-1.0)
[2024-05-18 02:27] LABS: BACTERIA,URINE FEW /HPF (NONE TO FEW); EPITHELIAL CELLS,URINE FEW /LPF; RBC,URINE 0-5 /HPF (0-5); WBC,URINE 0-5 /HPF (0-5)
[2024-05-18] MEDS: Sodium Chloride 0.9% 50 ML IV SCH (02:29)
[2024-05-18] MEDS: Iopamidol 755 Mg/ML 100 ML Bottle IV ONE (02:29)
[2024-05-18] MEDS: Sodium Chloride 0.9% 1,000 ML IV SCH (03:09)
[2024-05-18] MEDS: Cefepime 2 GM Vial IVPUSH ONE (03:25)
[2024-05-18 04:20] VITALS: BP 117/75; PULSE 91
== END 2024-05-18 04:30 ==
LOC: KA.ED 01:31
DX: K56.699 Other intestinal obstruction unspecified as to partial versus complete obstruction (principal); D72.829 Elevated white blood cell count, unspecified; R74.02 Elevation of levels of lactic acid dehydrogenase [LDH]; Z88.0 Allergy status to penicillin; Z90.49 Acquired absence of other specified parts of digestive tract; Z90.710 Acquired absence of both cervix and uterus
CPT/HCPCS: 36415; 74177; 80053; 81001; 83605; 83690; 85025; 87040; 96361; 96374; 96375; 96376; 99284; 99285-25; J0692; J1170; J2405; J3490; J7030; Q9967